=== PATIENT | male | born 1945 | race Asian ===

== ENCOUNTER 2019-01-19 13:05 | Emergency (ER) | payer MEDICARE, OTHER ==
[2019-01-19] MEDS ORDERED: Adacel (T-DAP) 0.5 ML SYRINGE ONE (13:27)
== END 2019-01-19 13:45 | disposition home or self-care (01) ==
LOC: NAV ERS 13:05
DX: S91.331A Puncture wound without foreign body, right foot, initial encounter (principal); E78.00 Pure hypercholesterolemia, unspecified; W45.0XXA Nail entering through skin, initial encounter
CPT/HCPCS: 90471; 90715